=== PATIENT | female | born 1965 | race Caucasian/White ===

== ENCOUNTER → 2022-03-08 | Outpatient (CLI) | payer MEDICARE ==
[~2022-03-08] MED LIST: ASPI81TA26 PO; BLAC1CAP2 PO; CVS1CHW13 PO; CVS1CHW58 PO; FISH1000 PO; LEVO137T2 PO; OMEP-173 PO; OXYB15TA14 PO; POTA-151 PO; PROP80TA PO; SERT50TA29 PO; VITA500075 PO
== END ==
LOC: M LABSMTC 10:00
PROVIDERS: ATTEND Anesthesiology
DX: Z01.818 Encounter for other preprocedural examination (principal); Z11.52 Encounter for screening for COVID-19

== ENCOUNTER 2022-03-09 07:38 | Day surgery (SDC) | payer MEDICARE ==
[~2022-03-09] VITALS: Ht 160 cm; Wt 92.0 kg
[~2022-03-09 07:38] MED LIST changes: +CIPROFLOXACIN 400 MG in IV 1 EA IV ONE
[2022-03-09] MEDS ORDERED: LR 1,000 ML IV SCH ×2 (10:15→11:55)
[2022-03-09] MEDS ORDERED: MIDAZOLAM INJ 2MG/2ML VIAL (J2250 PER 1MG) As Ordered ONE (10:50)
[2022-03-09] MEDS ORDERED: dexameTHASONE 4 MG/ML 1ML VIAL (J1100 PER 1MG) As Ordered ONE (10:51)
[2022-03-09] MEDS ORDERED: LIDOCAINE 2% 100MG/5ML SDV (FOR ANES.) As Ordered ONE (10:51)
[2022-03-09] MEDS ORDERED: ONDANSETRON 4MG/2ML VIAL As Ordered ONE (10:51)
[2022-03-09] MEDS ORDERED: fentaNYL 100 MCG/2 ML INJECTION As Ordered ONE (10:51)
[2022-03-09] MEDS ORDERED: propofoL 200 MG/20 ML VIAL As Ordered ONE ×2 (10:51→11:44)
[2022-03-09] MEDS ORDERED: ACETAMINOPHEN 1000MG 100ML IV BTL (OFIRMEV) (J0131 PER 10MG) As Ordered ONE (10:58)
[2022-03-09] MEDS ORDERED: GLYCOPYRROLATE INJ 0.2 MG/ML 2 ML VIAL As Ordered ONE (11:21)
[2022-03-09] MEDS ORDERED: KETAMINE HCL 200 MG/20 ML VIAL As Ordered ONE (11:30)
[2022-03-09] MEDS ORDERED: ISOVUE-300 61% 50ML VIAL As Ordered ONE (11:37)
[2022-03-09] MEDS ORDERED: ONDANSETRON 4MG/2ML VIAL IV PRN (11:55)
[2022-03-09] MEDS ORDERED: fentaNYL 100 MCG/2 ML INJECTION IV PRN (11:55)
[2022-03-09] MEDS ORDERED: oxyCODONE 5MG TAB PO PRN (11:55)
[2022-03-09 13:18] VITALS: BP 135/72
== END 2022-03-09 13:20 | disposition home or self-care (01) ==
LOC: M SDC 07:38 → EDUNIT# 08:00 → M SDC 13:20
PROVIDERS: ATTEND Urology
DX: N13.30 Unspecified hydronephrosis (principal); I10 Essential (primary) hypertension; Z92.21 Personal history of antineoplastic chemotherapy; K44.9 Diaphragmatic hernia without obstruction or gangrene; K21.9 Gastro-esophageal reflux disease without esophagitis; Z79.82 Long term (current) use of aspirin; Z79.899 Other long term (current) drug therapy
CPT/HCPCS: 52332; 74420; 87088; 87186; C1769; C1894; C2617; J0131; J0744; J1100; J2250; J2405; J3010; Q9967

== ENCOUNTER → 2022-06-03 | Outpatient (CLI) | payer MEDICARE ==
[~2022-06-03] MED LIST changes: -CIPROFLOXACIN 400 MG in IV 1 EA IV ONE
== END ==
LOC: M LABSMTC 09:32
PROVIDERS: ATTEND Anesthesiology
DX: Z01.812 Encounter for preprocedural laboratory examination (principal); Z20.822 Contact with and (suspected) exposure to COVID-19

== ENCOUNTER 2022-06-07 10:57 | Day surgery (SDC) | payer MEDICARE ==
[~2022-06-07] VITALS: Ht 160 cm; Wt 91.6 kg
[2022-06-07] MEDS ORDERED: LR 1,000 ML IV SCH (11:35)
[2022-06-07] MEDS ORDERED: ceFAZolin SOD 2 GM in IV 1 EA IV ONE (12:55)
[2022-06-07] MEDS ORDERED: ISOVUE-300 61% 50ML VIAL As Ordered ONE (13:32)
[2022-06-07] MEDS ORDERED: LIDOCAINE 2% 100MG/5ML SDV (FOR ANES.) As Ordered ONE (14:57)
[2022-06-07] MEDS ORDERED: fentaNYL 100 MCG/2 ML INJECTION As Ordered ONE (14:57)
[2022-06-07] MEDS ORDERED: propofoL 200 MG/20 ML VIAL As Ordered ONE (14:57)
[2022-06-07] MEDS ORDERED: MIDAZOLAM INJ 2MG/2ML VIAL (J2250 PER 1MG) As Ordered ONE (14:57)
[2022-06-07] MEDS ORDERED: ACETAMINOPHEN 1000MG 100ML IV BTL (OFIRMEV) (J0131 PER 10MG) As Ordered ONE (14:58)
[2022-06-07] MEDS ORDERED: ONDANSETRON 4MG 2ML VIAL As Ordered ONE (14:59)
[2022-06-07] MEDS ORDERED: MACR100C43 PO (15:17)
[2022-06-07] MEDS ORDERED: PYRI1TAB5 PO (15:17)
[2022-06-07 15:45] VITALS: BP 117/67
== END 2022-06-07 15:50 | disposition home or self-care (01) ==
LOC: M SDC 10:57
PROVIDERS: ATTEND Urology
DX: N13.1 Hydronephrosis with ureteral stricture, not elsewhere classified (principal); C78.6 Secondary malignant neoplasm of retroperitoneum and peritoneum; N32.89 Other specified disorders of bladder; Z79.899 Other long term (current) drug therapy; Z79.82 Long term (current) use of aspirin
CPT/HCPCS: 52332; 74420; C1769; C2617; J0131; J2250; J2405; J3010; Q9967

== ENCOUNTER → 2022-11-19 | Outpatient (CLI) | payer MEDICARE, OTHER ==
[~2022-11-19] MED LIST changes: +APAP325T4 PO; +APPLTAB3 PO; +BAYE81TA7 PO; +IBUP1TAB6 PO; +MACR100C43 PO; +OMEG12003 PO; +POTA4.25 PO; +PRIL20TA2 PO; +PROBCAP14 PO; +PYRI1TAB5 PO
== END ==
LOC: M LABSMTC 11:24
PROVIDERS: ATTEND Urology
DX: Z01.812 Encounter for preprocedural laboratory examination (principal)

== ENCOUNTER 2022-11-22 08:54 | Day surgery (SDC) | payer MEDICARE, OTHER ==
[~2022-11-22] VITALS: Ht 160 cm; Wt 92.0 kg
[~2022-11-22 08:54] MED LIST changes: +ceFAZolin SOD 2 GM in IV 1 EA IV ONE
[2022-11-22] MEDS ORDERED: LR 1,000 ML IV SCH (09:25)
[2022-11-22] MEDS ORDERED: ISOVUE-300 61% 100ML VIAL As Ordered ONE (10:41)
[2022-11-22] MEDS ORDERED: ACETAMINOPHEN 1000MG 100ML IV BAG As Ordered ONE (10:43)
[2022-11-22] MEDS ORDERED: fentaNYL 100 MCG/2 ML INJECTION As Ordered ONE (10:43)
[2022-11-22] MEDS ORDERED: MIDAZOLAM INJ 2MG/2ML VIAL As Ordered ONE (10:43)
[2022-11-22] MEDS ORDERED: ONDANSETRON 4MG 2ML VIAL As Ordered ONE (10:44)
[2022-11-22] MEDS ORDERED: LIDOCAINE 2% 100MG/5ML SDV (FOR ANES.) As Ordered ONE (10:45)
[2022-11-22] MEDS ORDERED: propofoL 200 MG/20 ML VIAL As Ordered ONE ×2 (10:45→10:46)
[2022-11-22] MEDS ORDERED: MACR100C43 PO (11:33)
[2022-11-22 12:05] VITALS: BP 105/58
== END 2022-11-22 12:08 | disposition home or self-care (01) ==
LOC: M SDC 08:54
PROVIDERS: ATTEND Urology
DX: N13.2 Hydronephrosis with renal and ureteral calculous obstruction (principal); I10 Essential (primary) hypertension; I47.1 Supraventricular tachycardia; E03.9 Hypothyroidism, unspecified; K44.9 Diaphragmatic hernia without obstruction or gangrene; K21.9 Gastro-esophageal reflux disease without esophagitis; M19.90 Unspecified osteoarthritis, unspecified site; Z79.899 Other long term (current) drug therapy; Z79.890 Hormone replacement therapy; Z79.82 Long term (current) use of aspirin
CPT/HCPCS: 52332; 74420; C1769; C2617; J0131; J0690; J1100; J2250; J2405; J3010; Q9967

== ENCOUNTER 2023-07-15 10:29 | Day surgery (SDC) | payer MEDICARE, OTHER ==
[~2023-07-15] VITALS: Ht 160 cm; Wt 89.7 kg
[~2023-07-15 10:29] MED LIST changes: +SCOPOLAMINE 1MG TRANSDERMAL PATCH TOP SCH; +UNRESOLVED CLARIFICATION ENTRY XX SCH; -ceFAZolin SOD 2 GM in IV 1 EA IV ONE
[2023-07-15] MEDS ORDERED: LR 1,000 ML IV SCH (10:55)
[2023-07-15] MEDS ORDERED: ceFAZolin SOD 2 GM in IV 1 EA IV ONE (12:15)
[2023-07-15] MEDS ORDERED: ONDANSETRON 4MG 2ML VIAL As Ordered ONE (13:50)
[2023-07-15] MEDS ORDERED: LIDOCAINE 2% 100MG/5ML SDV (FOR ANES.) As Ordered ONE (13:50)
[2023-07-15] MEDS ORDERED: propofoL 200 MG/20 ML VIAL As Ordered ONE (13:50)
[2023-07-15] MEDS ORDERED: fentaNYL 100 MCG/2 ML INJECTION As Ordered ONE (13:55)
[2023-07-15] MEDS ORDERED: MIDAZOLAM INJ 2MG/2ML VIAL As Ordered ONE (13:55)
[2023-07-15] MEDS ORDERED: ACETAMINOPHEN 1000MG 100ML IV BAG As Ordered ONE (14:37)
[2023-07-15] MEDS ORDERED: ISOVUE-300 61% 100ML VIAL As Ordered ONE (14:37)
[2023-07-15] MEDS ORDERED: MACR100C43 PO (15:08)
[2023-07-15] MEDS ORDERED: PYRI1TAB5 PO (15:23)
[2023-07-15 15:55] VITALS: BP 129/69; TEMP 97.2; O2SAT 95
== END 2023-07-15 15:59 | disposition home or self-care (01) ==
LOC: M SDC 10:29
PROVIDERS: ATTEND Urology
DX: N13.2 Hydronephrosis with renal and ureteral calculous obstruction (principal); I47.10 Supraventricular tachycardia, unspecified; I10 Essential (primary) hypertension; E89.0 Postprocedural hypothyroidism; Z79.899 Other long term (current) drug therapy; Z79.890 Hormone replacement therapy
CPT/HCPCS: 52332; 52351; 76000; C1769; C1894; C2617; J0131; J1100; J2250; J2405; J3010; Q9967

== ENCOUNTER 2024-06-15 08:19 | Day surgery (SDC) | payer MEDICARE, OTHER ==
[~2024-06-15] VITALS: Ht 160 cm; Wt 90.5 kg
[~2024-06-15 08:19] MED LIST changes: -SCOPOLAMINE 1MG TRANSDERMAL PATCH TOP SCH; -UNRESOLVED CLARIFICATION ENTRY XX SCH
[2024-06-15] MEDS ORDERED: LR 1,000 ML IV SCH (08:25)
[2024-06-15] MEDS ORDERED: LIDOCAINE 2% INJ 100 MG/5 ML SYRINGE As Ordered ONE (09:22)
[2024-06-15] MEDS ORDERED: fentaNYL 100 MCG/2 ML INJECTION As Ordered ONE (09:22)
[2024-06-15] MEDS ORDERED: propofoL 200 MG/20 ML VIAL As Ordered ONE (09:22)
[2024-06-15] MEDS ORDERED: MIDAZOLAM INJ 2MG/2ML VIAL As Ordered ONE (09:22)
[2024-06-15] MEDS ORDERED: LIDOCAINE 2% 100MG/5ML SDV (FOR ANES.) As Ordered ONE (09:29)
[2024-06-15] MEDS ORDERED: ONDANSETRON 4MG 2ML VIAL As Ordered ONE (09:37)
[2024-06-15] MEDS: SCOPOLAMINE 1MG TRANSDERMAL PATCH TOP ONE (09:51)
[2024-06-15] MEDS: ceFAZolin SOD 2 GM in IV 1 EA IV ONE (10:28)
[2024-06-15] MEDS: ISOVUE-300 61% 100ML VIAL As Ordered ONE (10:30)
[2024-06-15] MEDS ORDERED: ACETAMINOPHEN 1000MG 100ML IV BAG As Ordered ONE (10:34)
[2024-06-15 11:09] VITALS: BP 142/66; TEMP 96.9; O2SAT 97
== END 2024-06-15 11:20 | disposition home or self-care (01) ==
LOC: M SDC 08:19
PROVIDERS: ATTEND Urology
DX: N28.89 Other specified disorders of kidney and ureter (principal); Z79.899 Other long term (current) drug therapy
CPT/HCPCS: 52332; 52351; 76000; C1769; C1894; C2617; J0131; J0690; J1100; J2250; J2405; J3010; Q9967